=== PATIENT | male | born 1950 | race African-American/Black ===

== ENCOUNTER 2016-09-04 10:09 | Emergency (ER) | payer MEDICARE ==
[~2016-09-04] VITALS: Ht 185.4 cm; Wt 154.2 kg
[2016-09-04 10:31] VITALS: BP 155/74
[2016-09-04] MEDS ORDERED: ONDANSETRON HCL 4 MG/2 ML VIAL IM ONE (11:45)
[2016-09-04] MEDS ORDERED: MORPHINE SULFATE 4 MG/ML SYRG IM ONE (11:45)
== END 2016-09-04 13:28 | disposition home or self-care (01) ==
LOC: ER 10:13
DX: N28.89 Other specified disorders of kidney and ureter (principal); M47.896 Other spondylosis, lumbar region; D35.01 Benign neoplasm of right adrenal gland; E11.9 Type 2 diabetes mellitus without complications; I10 Essential (primary) hypertension; E66.9 Obesity, unspecified; Z68.41 Body mass index [BMI] 40.0-44.9, adult
CPT/HCPCS: 72100; 74176; 96372; 99284; J2270; J2405

== ENCOUNTER 2024-02-07 08:59 | Emergency (ER) | payer MEDICARE, OTHER ==
[~2024-02-07] VITALS: Ht 182.9 cm; Wt 145.0 kg
[2024-02-07 09:00] VITALS: PULSE 0; RESP 0; O2SAT 0
--- NOTE | 2024-02-07 09:48 | ED.PDOC ---
CPR-HPI HPI Comments 73 year old male GAIL presents to the ED with chief complaint of cardiac arrest. EMS reports patient was at the dialysis center receiving dialysis when he suddenly went unresponsive and 911 was called. EMS relays patient was V-tach on their monitors, providing Epinephrine, Calcium, Lidocaine, and NS, but the patient soon went into PEA. EMS states patient's blood glucose was 50, so they provided a D10 for the patient. EMS notes downtime prior to arrival in the ED was a total of 15 minutes. No ROSC was obtained. Chief Complaint: CPR Time Seen by MD: 09:00 Primary Care Provider: GILMAR Reviewed Notes: Nurses Notes, Medications, Allergies Allergies: Coded Allergies: NO KNOWN ALLERGIES (Unverified , 09/04/16) Information Source: Patient Mode of Arrival: EMS Timing: Hours Duration: Down time prior EMS: (10 minutes), Total time prior hopital: (15 minutes) Onset: At rest Available Hx: Unknown Inital rhythm: V-tach, PEA Treatment: CPR, IV, Epinephrine, Other (Lidocaine, Calcium, 400mL NS, D10, x4 Epinephrine) Associated signs and symptoms: None Past Medical History PAST MEDICAL HISTORY: ESRD Surgical History: Denies all surgeries Family History Family History: Unknown Social History Smoker: Non-Smoker Alcohol: Denies ETOH Use Drugs: Denies Drug Use Lives In: Home Constitutional: denies: chills, diaphoresis, fatigue, fever, malaise, sweats, weakness, others EENTM: denies: blurred vision, double vision, ear bleeding, ear discharge, ear drainage, ear pain, ear ringing, eye pain, eye redness, hearing loss, mouth pain, mouth swelling, nasal discharge, nose bleeding, nose congestion, nose pain, photophobia, tearing, throat pain, throat swelling, voice changes, others Respiratory: denies: cough, hemoptysis, orthopnea, SOB at rest, shortness of breath, SOB with excertion, stridor, wheezing, others Cardiovascular: denies: chest pain, dizzy spells, diaphoresis, Dyspnea on exertion, edema, irregular heart beat, left arm pain, lightheadedness, palpitations, PND, syncope, others Gastrointestinal: denies: abdomen distended, abdominal pain, blood streaked bowels, constipated, diarrhea, dysphagia, difficulty swallowing, hematemesis, melena, nausea, poor appetite, poor fluid intake, rectal bleeding, rectal pain, vomiting, others Genitourinary: denies: burning, dysuria, flank pain, frequency, hematuria, incontinence, penile discharge, penile sore, pain, testicle pain, testicle swelling, urgency, others Neurological: denies: dizziness, fainting, headache, left sided numbness, left sided weakness, numbness, paresthesia, pre-existing deficit, right sided numbness, right sided weakness, seizure, speech problems, tingling, tremors, weakness, others Musculoskeletal: denies: back pain, gout, joint pain, joint swelling, muscle pain, muscle stiffness, neck pain, others Integumetry: denies: bruises, change in color, change in hair/nails, dryness, laceration, lesions, lumps, rash, wounds, others Hematologic/Lymphatic: denies: anemia, blood clots, easy bleeding, easy bruising, swollen glands, others Endocrine: denies: excessive hunger, excessive sweating, excessive thirst, excessive urination, flushing, intolerance to cold, intolerance to heat, unexplained weight gain, unexplained weight loss, others Psychiatric: denies: anxiety, bipolar disorder, depression, hopeless, panic disorder, schizophrenia, sleepless, suicidal, others Unable to Obtain due to: Altered Mental Status, Medical Urgency All Other Systems: Reviewed and Negative Physical Exam Exam Comments 73-year-old black male presented to the emergency department unconscious CPR in progress and ventilated with a bag-valve mask having a lots of blood came in from his trachea General Appearance: Obese, Other (Unconscious) HEENT: Normal ENT Inspection, Other (Pupils dilated and fixed) Neck: Normal Inspection Respiratory: Lungs Clear, Other (Patient apneic and immediately intubated using an eight endotracheal tube breathing now from both lungsPatient also a systolic no pulses and CPR in progress) Cardiovascular: No Edema, No JVD, Other (Cardiac arrest) Breast Exam: Deferred Gastrointestinal: Other (Patient with morbid obesity and severely protuberant abdomen) Genitalia: Deferred Pelvic: Deferred Rectal: Deferred Extremities: Normal inspection, Non-tender, Other (Flaccid) Musculoskeletal : Apperance: Normal Neurologic: Other (Patient in the cardiac arrest unconscious) Cerebellar Function: Unable to Test Reflexes: None Skin: Dry, Mottled, Warm Peripheral Pulses: 0 carotid (R), 0 carotid (L), 0 femoral (R), 0 femoral (L), 0 dorsalis pedis (R), 0 dorsalis pedis (L), 0 Radial (R), 0 Radial (L), 0 Brachial (R), 0 Brachial (L) Lymphatic: No Adenopathy Was a procedure done? Was a procedure done?: Yes Sedation Sedation?: No Informed consent obtained: No Intubation Indication: Respiratory Insufficiency, Altered Mental Status, Airway Protection Prep: Preoxygenation Pretreated with: Other (5mg Versed) Medicated with: Nothing Intubation Approach: Orotracheal (8 am dumb) Intubation size: cm (8) Informed consent obtained: No Risks/benefits/alt described: No Differential Dx CPR Differential Diagnosis: Cardiopulmonary arrest, Cardiogenic shock, Dysrhythmia, Electrolyte disorder, Heart Block, Myocardial Infarction, Pulmonary Embolus, Respiratory Failure X-Ray, Labs, Meds, VS Vital Signs Date Time Temp Pulse Resp B/P (MAP) Pulse Ox O2 Delivery O2 Flow Rate FiO2 02/07/24 10:10 Ambu-Bag 02/07/24 09:00 0 0 0 Mechanical Ventilator+ 100 100 02/07/24 09:00 96.8 0 0 0/0 (0) 0 96.8 02/07/24 08:59 0 0 0/0 (0) 0 X-Ray, Labs, Meds, VS Comment Patient came in in cardiac arrest CPR in progress acls continued for several minutes patient recovered a pulse for maybe 1 minute and went back t0 fine ventricular fibrillation and back to straight line patient at 9:19 a.m. and pronounced Time of 1ST Reevaluation: 09:30 Reevaluation 1ST: N/A Patient Education/Counseling: Pt Unresponsive Family Education/Counseling: No Family Present Departure 1 Departure Time of Disposition: 13:18 Impression: Primary Impression: Cardiac arrest Additional Impressions: Unsuccessful cardiopulmonary resuscitation Morbid obesity Disposition: 20 Condition: Other (Patient ) Critical Care Note Critical Care Time?: No Heart Score Heart Score: Heart Score Response (Comments) Value History N/A 0 EKG N/A 0 Age N/A 0 Risk Factors N/A 0 Troponin N/A 0 Total 0 Stability Stability form required: No I personally scribed for DEJA CONTRERAS MD ([email or web address]) on 02/07/24 at 09:48. Electronically submitted by Lloyd Mack ([email or web address]). I personally scribed for DEJA CONTRERAS MD ([email or web address]) on 02/07/24 at 09:48. Electronically submitted by Lloyd Mack ([email or web address]). I personally scribed for DEJA CONTRERAS MD ([email or web address]) on 02/07/24 at 09:57. Electronically submitted by Lloyd Mack ([email or web address]). I personally scribed for DEJA CONTRERAS MD ([email or web address]) on 02/07/24 at 10:16. Electronically submitted by Lilli Gooden ([email or web address]). DEJA CONTRERAS MD Feb 07, 2024 09:48
--- NOTE | 2024-02-07 10:10 | RESUS ---
CODE BLUE ASSESSSMENT History of Events History of Events: BIBA, CPR ON PROGRESS, WITNESSED ARREST, PT ON PHONE TALKING TO FAMILY MEMBER DURING DIALYSIS WHEN HE WENT UNRESPONSIVE, APPROX DOWNTIME 10 MINUTES PRIOR TO EMS ARRIVAL APPROX FLUID REMOVED DURING DIALYSIS WAS 2400ML WAS SHOCK 3X AT THE DIALYSIS CENTER PT WAS VFIB ON EMS ARRIVAL. TOTAL OF 5 SHOCKS DELIVERED AND WENT TO PEA EPI X 4, LIDO X 1, NA X 1, CA X 1 NS 400ML EN ROUTE PT STILL PEA ON ARRIVAL ACCUCHECK OF 60, WAS GIVEN D10 EN ROUTE ACCUCHECK AFTE D10 WAS 50 Initial Information Date: Feb 07, 2024 Time: :58 Location of Arrest: In Field Arrest Witnessed: Yes CPR started initial time: 08:30 CPR started by whom: Last seen well: DURING DIALYSIS Pre-Hospital Care: ACLS Type of arrest: Cardiac, Respiratory, Adult, Witnessed Spontaneous Respirations: No Pulse Present: No Monitoring: ECG, Pulse Oximetry, Capnography Airway Ventilation Breathing at Onset: Assisted Oxygen Delivery Method: Ambu-Bag Time of first Assisted Ventila: :30 Intubation Size: 8.0 cuffed Intubated by: DR CONTRERAS Intubation Attempts: 1 Intubated orally: Yes Intubated Nasaly: No Tube secured at: 26 Cricoid pressure done: Yes CO2 indicator used: Yes Confirmation: Auscultation, Exhaled CO2 Suctioning (Oral/Tracheal): Yes Circulation Circulation #1: Time: 09:01 Pulse Rate (adult): 35 Circulation Comment: PEA Circulation #2: Time: 09:04 Pulse Rate (adult): 60 Circulation Comment: PEA Circulation #3: Time: 09:07 Pulse Rate (adult): 62 Circulation Comment: PEA Circulation #4: Time: 09:08 Pulse Rate (adult): 57 Circulation Comment: PEA Circulation #5: Time: 09:09 Circulation Comment: VFIB Circulation #6: Time: 09:11 Pulse Rate (adult): 112 Circulation Comment: ROSC - TACHYCARDIA Circulation #7: Time: 09:12 Circulation Comment: VFIB Defibrillation Defbrillation #1: Time Defibrillator Applied: :58 EKG Rhythm: V-Fibrillation Compressions: Manual Time Defibrillator Shocked Pt.: 09:09 Defib. Joules: 120 Pulse Present: No EKG Rhythm: PEA Defbrillation #2: EKG Rhythm: V-Fibrillation Compressions: Manual Time Defibrillator Shocked Pt.: 09:12 Defib. Joules: 150 Pulse Present: No EKG Rhythm: PEA Defbrillation #3: EKG Rhythm: V-Fibrillation Compressions: Manual Time Defibrillator Shocked Pt.: 09:14 Defib. Joules: 200 Pulse Present: No EKG Rhythm: PEA Procedure - IV Procedure - IV : IV Side: Left IV Location: Antecubital IV Catheter Type: Saline Lock IV Placed: Pre-Hospital IV Placed by EMS IV Gauge: 18 IV Line Care: Saline Flush Procedure - Intraosseous Site of Intraosseous: Tibia christy-medial Intraosseous inserted by: EMS Number of attempts for Intraos: 1 Medications & Response Medications and Responses #1: Medication Time: 09:02 ADULT Medications Given ADULT: Epinephrine 1 mg Route of Administration: IO EKG Rhythm: PEA Medications and Responses #2: Medication Time: 09:05 ADULT Medications Given ADULT: D50 (amp), Calcium Chloride 10 mL Route of Administration: IO Medication Comment: BGL 50 WITH EMS ON ARRIVAL Medications and Responses #3: Medication Time: 09:05 ADULT Medications Given ADULT: Epinephrine 1 mg Route of Administration: IO EKG Rhythm: PEA Medications and Responses #4: Medication Time: 09:07 ADULT Medications Given ADULT: Sodium Bacarbinate 50 meq Route of Administration: IO EKG Rhythm: PEA Medications and Responses #5: Medication Time: 09:08 ADULT Medications Given ADULT: Epinephrine 1 mg Route of Administration: IO EKG Rhythm: PEA Medications and Responses #6: Medication Time: 09:10 ADULT Medications Given ADULT: Epinephrine 1 mg Route of Administration: IO EKG Rhythm: PEA Medications and Responses #7: Medication Time: 09:18 ADULT Medications Given ADULT: Epinephrine 1 mg Route of Administration: IV EKG Rhythm: PEA Nurses Notes Tanya Coma Scale Eye Opening: None (1) [place]anya Coma Scale Verbal: None (1) [place] Coma Scale Motor: None (1) [place] Total: 3 Pupil Reaction: Non Reactive Bedside Blood Glucose: 142 Time Code Ended Time Code Ended: 09:19 Post Arrest Status: Outcome of code: Unsuccessful Patient pronounced by: DR CONTRERAS Time patient pronounced: 09:19 Family notified: Yes Code Team Present: DR BEN TAYLOR, RN MARIOLA, RN ADA, RN LA, RNS EMT STUDENT X2 APU RN STUDENT JAYCEE, RT ALEC ERT ANAID, RT ROSC Time of ROSC: 09:11 MARIOLA GARCIA Feb 07, 2024 10:10
== END 2024-02-07 09:19 ==
LOC: EDBD 08:59 → EDUNIT# 08:59 → ER 08:59
DX: I46.9 Cardiac arrest, cause unspecified (principal); N18.6 End stage renal disease; E66.01 Morbid (severe) obesity due to excess calories; R41.82 Altered mental status, unspecified; R06.89 Other abnormalities of breathing; Z99.2 Dependence on renal dialysis; Z68.41 Body mass index [BMI] 40.0-44.9, adult
CPT/HCPCS: 31500; 82947; 92950